=== PATIENT | male | born 1990 | race Caucasian/White ===

== ENCOUNTER 2016-10-28 18:32 | Emergency (ER) | payer OTHER ==
[2016-10-28 22:03] LABS: CREATININE 0.9 mg/dL (0.7-1.2); POTASSIUM 3.9 mmol/L (3.5-5.1)
[2016-10-28 22:23] LABS: BILIRUBIN NEGATIVE (NEGATIVE); BLOOD NEGATIVE Ery/uL (NEGATIVE); CLARITY CLEAR (CLEAR); COLOR YELLOW (YELLOW); GLUCOSE (U) NORMAL (NORMAL); KETONE (U) NEGATIVE (NEGATIVE); LEUKOCYTES NEGATIVE Leu/uL (NEGATIVE); NITRITE NEGATIVE (NEGATIVE); PROTEIN NEGATIVE (NEGATIVE); UROBILINOGEN 0.2 mg/dL (0.2-1.0); pH 6.5 (5.0-9.0)
[2016-10-28 22:25] LABS: HCT 43.8 % (42.0-52.0); HGB 15.3 g/dl (13.2-18.0); MCH 29.3 pg (25.0-31.0); MCHC 34.9 g/dL (32.0-36.0); MCV 83.9 fL (78.0-100.0); MPV 10.3 fL (6.0-9.5); RBC 5.22 M/uL (4.70-6.00); RDW 13.4 % (11.5-14.0); WBC 4.8 K/uL (4.0-10.5)
== END 2016-10-29 00:11 | disposition home or self-care (01) ==
LOC: FER 18:32
PROVIDERS: Emergency Medicine
DX: R11.2 Nausea with vomiting, unspecified (principal); R19.7 Diarrhea, unspecified; R10.816 Epigastric abdominal tenderness
CPT/HCPCS: 36415; 74022; 80048; 81003; 87045; 87046; 87339; J2405